=== PATIENT | female | born 1985 | race Caucasian/White ===

== ENCOUNTER 2017-06-25 08:40 | Emergency (ER) | payer SELFPAY ==
[2017-06-25] MEDS ORDERED: diphenhydrAMINE HCL 25 MG TABLET PO ONE (08:47)
[2017-06-25] MEDS ORDERED: methylPREDNISolone SOD SUCC 125 MG/2 ML VIAL IM ONE (08:47)
--- NOTE | 2017-06-25 08:49 | ED Physician Documentation ---
Skin Rash - HISTORIAN Historian: patient - HPI Chief Complaint: Skin Rash Additional Information: found in [place], with itchy rash on legs and arms. Linear, scaly rash. brought by EMS, apparently homeless, will get SS involved Onset: days ago Timing: still present Duration: persistent since Location: [facility], [facility] [place], [place], [place] Quality: itchy Identified Cause?: Yes Where: park Context: Medication Exposure: none Context: Food Exposure: none Context: Other Exposure: poison samuel, poison oak Further Comments: no - ROS CONST: none, no problems CVS/RESP: none EYES/ENT: none GI/: none MS/SKIN/LYMPH: none NEURO/PSYCH: none - PAST HX Past History: none Other History: other (psych history but appearsunremarkable today) Surgeries/Procedures: Yes Immunizations: UTD - SOCIAL HX Smoking History: cigarettes, greater than 1 pack/day Alcohol Use: none Drug Use: none - FAMILY HX Family History: none - REVIEWED ASSESSMENTS Nursing Assessment Reviewed: Yes Vitals Reviewed: Yes Progress - Results/Orders Results/Orders: manager social responsibility notified, they will come visit with her. ED Results Lab/Radiology - Orders Orders: ED Orders Category Date Time Status diphenhydrAMINE HCL [Benadryl] Med 06/25/17 08:47 Once 50 mg PO NOW ONE methylPREDNISolone SOD SUCC [Solu-MEDROL] Med 06/25/17 08:47 Once 125 mg IM NOW ONE Skin Rash Physical Exam - EXAM General Appearance: no acute distress, alert Skin: warm,dry, skin rash (linear scaly, pruritic, urticaria buttock, ankles, wrists) Character: patchy, linear, urticarial Symptoms: No: warmth, tenderness Extremities: non-tender EENT: eyes nml inspection Neck: no swelling. No: stiff neck, meningismus, lymphadenopathy Respiratory: no resp distress CVS: reg. rate & rhythm Abdomen: non-tender Neuro/Psych: oriented x3, motor nml, sensation nml, mood/affect nml Discharge Clincal Impression: Rhus dermatitis Referrals: Primary Doctor,No [Primary Care Provider] - 2 Days Condition: Stable Disposition: 01 HOME, SELF-CARE Decision to Admit: NO Date of Decison to Admit: 06/25/17 Decision Time: 08:53
[2017-06-25 08:54] VITALS: BP 134/68
== END 2017-06-25 09:20 | disposition home or self-care (01) ==
LOC: ED 08:40
DX: L23.7 Allergic contact dermatitis due to plants, except food (principal)
CPT/HCPCS: 96372; 99283; J2930; Q0163